=== PATIENT | female | born 1985 | race Caucasian/White ===

== ENCOUNTER → 2017-12-28 12:24 | Outpatient (CLI) | payer OTHER, SELFPAY ==
--- NOTE | 2017-12-28 12:26 | DI.US.S_ITS ---
PROCEDURE: US OB >= 14 WEEKS FETUS INDICATIONS: 20 WEEK ANATOMIC SURVEY OUTSIDE/PRIOR DATING DATA: Last menstrual period (LMP): 08/02/17. LMP-based estimated date of delivery (DARRELL): 05/09/18. First dating scan (date and location): 10/21/17. Estimated date of delivery (DARRELL) from first dating scan: 05/09/18. TECHNIQUE: Real-time scanning was performed of the fetus, with image documentation and biometric measurements. Endovaginal scanning: Vertex COMPARISON: [facility], , OB >= 14 WEEKS FETUS, 12/10/2017, 16:23. FINDINGS: General: A single living intrauterine gestation is present. Presentation: Vertex Placenta: Placental position is anterior, without previa. Amniotic fluid index: 14.5 cm, normal range is 5-24 cm. heart rate: 152 beats per minute. Maternal cervical canal: 3.2 cm long. biometrics: Biparietal diameter: 5.1 cm; 21 weeks 3 days Head circumference: 19.1 cm; 21 weeks 3 days Abdominal circumference: 17.4 cm; 22 weeks 3 days Femur length: 3.8 cm; 22 weeks Estimated gestational age from initial scan: 21 weeks 1 day Composite gestational age from present scan: 21 weeks 6 days Estimated weight and percentile: Is 474 g; 89 percentile Measurement variability for biometric dating: +/- 7 days from 14 weeks to 15 weeks 6 days gestation, +/- 10 days from 16 weeks to 21 weeks 6 days gestation, +/- 2 weeks from 22 weeks to 27 weeks 6 days gestation, +/- 3 weeks for 28 weeks gestation or later. weight reference: 4500 g or EFW >90/95% is considered macrosomia or large for gestational age. EFW <10% is small for gestational age. EFW 5% or less is considered intra-uterine growth restriction. Anatomic survey: Neuro: Ventricles are non-dilated at less than 10 mm. Cisterna magna is normal at 3-11 mm. Cerebellum is normal in size and morphology. Nuchal skin fold: Normal at less than 6 mm between 14-21 weeks gestational age. Face: Nose and lips, facial profile are normal. Spine: No evidence for spina bifida. Heart: 4-chambered heart is present, with normal ventricular outflow tracts. Solitary left ventricular intracardiac focus present. Diaphragm: Diaphragm is intact. Stomach: Left-sided stomach is present. Kidneys: No hydronephrosis. Normal is less than 5 mm in 2nd trimester, less than 7 mm in 3rd trimester. Cord: 3-vessel cord has orthotopic insertion. Bladder: Normal in size. Extremities: All 4 extremities identified. IMPRESSION: Single living IUP we demonstrated and interval growth is upper limits of normal with estimated weight at the 89th percentile. Solitary left ventricular intracardiac focus which is nonspecific but does require correlation with maternal risk factors and quad screen if indicated. Anatomic survey otherwise is normal. Dictated by: Mac Davis [facility] Interpreted: Ralph Campbell MD on 12/28/2017 at 13:54 Approved by: Ralph Campbell M.D. on 12/28/2017 at 17:42
== END ==
PROVIDERS: Visit Provider Specialist
DX: Z34.92 Encounter for supervision of normal pregnancy, unspecified, second trimester (principal); Z3A.21 21 weeks gestation of pregnancy
CPT/HCPCS: 76811

== ENCOUNTER → 2018-02-18 13:40 | Outpatient (CLI) | payer OTHER, SELFPAY ==
[2018-02-18 15:41] LABS: Hematocrit 36.6 % (36-46); Hemoglobin 12.5 g/dL (12.0-16.0)
[2018-02-18 16:12] LABS: GTT (PREG) 1 Hour PP 50gm Dose 92 mg/dL (76-139)
== END ==
PROVIDERS: Visit Provider Specialist
DX: Z34.92 Encounter for supervision of normal pregnancy, unspecified, second trimester (principal)
CPT/HCPCS: 82950; 85014; 85018

== ENCOUNTER → 2018-04-04 11:33 | Outpatient (CLI) | payer OTHER, SELFPAY ==
[2018-04-04 12:24] LABS: Add Manual Diff / Slide Review NO; Basophils Percent Auto 0.5 % (0-2); Eosinophils Percent Auto 0.3 % (2-4); Hematocrit 38.1 % (36-46); Hemoglobin 13.2 g/dL (12.0-16.0); Mean Corpuscular HGB Conc 34.6 % (30-36); Mean Corpuscular Hemoglobin 31.4 PG (26-34); Mean Corpuscular Volume 90.8 fL (80-100); Neutrophils Absolute Auto 9700 /uL (3000-5900); Neutrophils Percent Auto 80.2 % (50-75); Platelet Count 282 X10^3/uL (150-400); Red Cell Distribution Width 14.5 % (11.6-14.8); White Blood Cell Count 12.1 X10^3/uL (4.5-11.0)
[2018-04-04 12:36] LABS: Alanine Aminotransferase 20 IU/L (9-52); Aspartate Aminotransferase 17 IU/L (14-36); Blood Urea Nitrogen 5 mg/dL (7-17); Estimated Glomerular Filt Rate > 60.0 mL/min (>60); Uric Acid 4.2 mg/dL (2.5-6.2)
[2018-04-04 13:45] LABS: Free T4, Direct Thyroxine 0.68 ng/dL (0.78-2.19)
[2018-04-04 13:59] LABS: Thyroid Stimulating Hormone 1.89 uIU/mL (0.47-4.68)
== END ==
PROVIDERS: Visit Provider Specialist
DX: E03.9 Hypothyroidism, unspecified (principal); O16.3 Unspecified maternal hypertension, third trimester
CPT/HCPCS: 36415; 82565; 84439; 84443; 84450; 84460; 84520; 84550; 85025

== ENCOUNTER 2018-04-04 12:07 | Outpatient (CLI) | payer OTHER, SELFPAY ==
--- NOTE | 2018-04-04 14:11 | PM.OBTRLD ---
Visit Information Visit Information Date of evaluation: 04/04/18 Primary OB Provider: Shira Shannon Reason for Evaluation: Yes non-stress test Comments/Additional reasons for admission: Thirty-five week gestation with hypertension in office on routine OB appointment Vital Signs Vital Signs: Blood pressure 132/82 Review of Systems Review of Systems Patient denies headaches, scotomata, epigastric pain All systems reviewed & are unremarkable except as noted in HPI and below Evaluation Evaluation Baseline heart rate: 140 Variability: Moderate (11-25) monitor accelerations: Present monitor decelerations: Absent Contraction Frequency (minutes): 0 Category of Tracing: I Laboratory results: Urine dip in the office was trace protein Diagnosis, Plan/Disposition Final Diagnosis (1) Hypertension affecting in third trimester: Current Visit: Yes Status: Acute (2) 35 weeks gestation of : Current Visit: Yes Status: Acute Plan/Disposition Plan: Patient was discharged to follow-up on 1 week at her routine OB appointment. Signs and symptoms of preeclampsia were reviewed with the patient. OB Disposition: home
== END 2018-04-04 13:04 | disposition home or self-care (01) ==
LOC: OB 04-06 16:26
PROVIDERS: Visit Provider Specialist
DX: O16.3 Unspecified maternal hypertension, third trimester (principal); Z3A.35 35 weeks gestation of pregnancy
CPT/HCPCS: 36415; 59025; 82565; 84439; 84443; 84450; 84460; 84520; 84550; 85025; G0378; G0379

== ENCOUNTER 2018-04-12 21:33 | Observation (INO) | payer OTHER, SELFPAY ==
[2018-04-12] MEDS: NIFEdipine 10 MG CAPSULE PO ×4 (22:10→23:10)
[2018-04-12] MEDS: TERBUTALINE 1 MG/ML VIAL 0.25 MG SUBCUT (23:31)
== END 2018-04-13 | disposition home or self-care (01) ==
LOC: LABOR 21:37
PROVIDERS: Admitting Provider Obstetrics & Gynecology; Visit Provider Obstetrics & Gynecology
DX: O16.3 Unspecified maternal hypertension, third trimester (principal); Z3A.36 36 weeks gestation of pregnancy
CPT/HCPCS: 59025; 59050; 96372; G0378; G0379

== ENCOUNTER 2018-04-13 10:01 | Inpatient (IN) | payer OTHER, SELFPAY ==
[2018-04-13 11:52] LABS: Strep Grp B PCR NEG for Grp B Strep
[2018-04-13 12:00] LABS: Add Manual Diff / Slide Review NO; Basophils Percent Auto 0.4 % (0-2); Eosinophils Percent Auto 0.1 % (2-4); Hematocrit 38.6 % (36-46); Hemoglobin 13.2 g/dL (12.0-16.0); Lymphocytes Percent Auto 7.5 % (25-40); Mean Corpuscular HGB Conc 34.1 % (30-36); Mean Corpuscular Hemoglobin 31.1 PG (26-34); Mean Corpuscular Volume 91.1 fL (80-100); Monocytes Percent Auto 4.6 % (3-14); Neutrophils Absolute Auto 16000 /uL (3000-5900); Neutrophils Percent Auto 87.4 % (50-75); Platelet Count 301 X10^3/uL (150-400); Red Blood Cell Count 4.24 X10^6/uL (4.0-5.2); Red Cell Distribution Width 14.7 % (11.6-14.8); White Blood Cell Count 18.3 X10^3/uL (4.5-11.0)
[2018-04-13 13:17] VITALS: BP 129/76
--- NOTE | 2018-04-13 13:26 | P.HPOB_ITS ---
OB HPI Date/Time Date of admission: 04/13/18 Date Patient Seen: 04/13/18 Time Patient Seen: 13:00 History of Present Condition Chief complaint: OBS : 1 Para: 0 Estimated Date of Delivery: 05/09/18 Estimated Gestational Age (weeks): 36 Narrative: Cinyd Campbell is a 32 year old female admitted in active labor History of Present care: good care, initiated at week # (11), number of visits (8) and pounds weight gain (74) Dating criteria: LMP confirmed by 1st trimester US Ultrasounds: abnormal US findings (Hyperechoic intracardiac focus, resolved) Obstetrical complications: none Medical complications: none Preadmission Labs Blood type: A (+) positive -: Antibody screen: negative, GBS status: negative, HBsAG: negative, HIV: negative, HSV 1: negative, HSV 2: negative and RPR/VDLR: negative -: Chlamydia screen: not detected and Gonorrhea screen: not detected -: Rubella: immune and Varicella: immune HCAB: negative PAP: Normal Cell-free DNA: Normal male 1 hr GTT: 92 Evaluation Evaluation Baseline heart rate: 150 Variability: Moderate (11-25) monitor accelerations: Present monitor decelerations: Absent Contraction Frequency (minutes): 3 Uterine Contraction Intensity: Moderate Category of Tracing: I Cervical dilation (cm): 6 Cervical effacement (%): 100 station: +1 Laboratory results: Laboratory Tests 04/13/18 04/13/18 04/13/18 11:50 11:50 Unknown WBC 18.3 H RBC 4.24 Hgb 13.2 Hct 38.6 MCV 91.1 MCH 31.1 MCHC 34.1 RDW 14.7 Plt Count 301 Neut % (Auto) 87.4 H Lymph % (Auto) 7.5 L [place] % (Auto) 4.6 Eos % (Auto) 0.1 L Baso % (Auto) 0.4 Neut # (Auto) 70281 H Group B Strep (PCR) Neg for grp b strep Blood Type A Positive Antibody Screen Negative PFSH Medical History Hypothyroidism (acquired) (Chronic) Social History Smoking Status: Never smoker Meds Home Medications Medication Instructions Recorded Confirmed Type omeprazole 40 mg capsule,delayed 40 mg PO DAILY #30 cap 03/04/18 04/13/18 Rx release breast pump #1 each 03/18/18 03/18/18 Rx levothyroxine 25 mcg capsule 75 mcg PO DAILY #90 cap 04/05/18 04/13/18 Rx Allergies Allergy/AdvReac Type Severity Reaction Status Date / Time Penicillins AdvReac Intermediate Verified 04/12/18 22:40 Review of Systems Review of Systems Regular painful contractions and vaginal bleeding. No headaches, scotomata, or epigastric pain. No leakage of fluid All systems reviewed & are unremarkable except as noted in HPI and below Exam Vital Signs (past 8 hours): Blood pressure 129/76, pulse of 85, temperature 97.5?- 04/13/18 13:17 Blood Pressure 129/76 Narrative Exam Narrative: Patient's HEENT exam within normal limits. No palpable thyromegaly. Lungs are clear to auscultation and percussion. Heart is regular rate and rhythm, no S3-S4 or murmurs. Uterus is gravid and nontender. Extremities with +1 edema, nontender. DTRs are normal. Objective Labs Result Diagrams: 04/13/18 11:50 Labs: Laboratory Results - last 24 hr 04/13/18 04/13/18 04/13/18 11:50 11:50 Unknown WBC 18.3 H RBC 4.24 Hgb 13.2 Hct 38.6 MCV 91.1 MCH 31.1 MCHC 34.1 RDW 14.7 Plt Count 301 Neut % (Auto) 87.4 H Lymph % (Auto) 7.5 L [place] % (Auto) 4.6 Eos % (Auto) 0.1 L Baso % (Auto) 0.4 Neut # (Auto) [id number] H Group B Strep (PCR) Neg for grp b strep Blood Type A Positive Antibody Screen Negative Assessment and Plan (1) Acquired hypothyroidism: Onset Date: 10/21/17 Current visit: No Status: None (2) 36 weeks gestation of : Current visit: Yes Status: Acute (3) Third trimester : Current visit: Yes Status: Acute Plan: Plan: Patient admitted in active labor plan is to for epidural if she requests and anticipate vaginal delivery.
[2018-04-13] MEDS: LACTATED RINGERS 1,000 ML 125 ML IV (14:16)
[2018-04-13] MEDS: LACTATED RINGERS 1,000 ML 100 ML IV (16:01)
--- NOTE | 2018-04-13 18:56 | P.PCNOB_ITS ---
Delivery date: 04/13/18 Intrapartal events: None Induction method: none Delivery monitor: external FHT and external uterine Route of delivery: Laceration description: Perineal - 2nd Degree Delivery repair: chromic Estimated blood loss (mL): 200 Anesthesia type: Epidural Narrative: Patient arrived on Labor and delivery in active labor. heart tones remained category 1 to category 2 throughout labor. She received an epidural catheter for pain control. She delivered spontaneously, over an intact perineum and the viable male was placed on the maternal abdomen. After cord stopped pulsating the cord was clamped cut and cord bloods obtained. The placenta delivered spontaneously, intact, with 3 vessels. There were no cervical or vaginal tears. A second-degree midline perineal tear was repaired with in 2 layers with 3 0 chromic suture. Baby weighed 6 lb 8 oz. [place] Baby 1: Infant gender: Male Presentation: vertex position: Right Occiput Anterior Placenta delivery description: Spontaneous cord vessel description: 3 Vessels score (1 min): 8 score (5 min): 9 Plan for aftercare: Routine care
[2018-04-14] MEDS: DERMOPLAST SPRAY 20% 60 ML 1 SPRAY TOP (01:54)
[2018-04-14] MEDS: IBUPROFEN 600 MG TABLET PO ×3 (06:00→18:45)
[2018-04-14] MEDS: LEVOTHYROXINE 75 MCG TABLET PO (06:05)
--- NOTE | 2018-04-14 07:33 | PM.PN.1 ---
Subjective Date Patient Seen: 04/14/18 Time Patient Seen: 07:34 Interval history: Patient is 12 hr . She has some burning with urination. She denies any headaches, scotomata, epigastric pain. She denies nausea. She is urinating and ambulatory. She has mild lochia. Exam Vital Signs (past 8 hours): Blood pressure 119/59, pulse of 98, temperature 36.1? Narrative Exam Narrative: Patient's abdomen is soft, nontender. Uterus is firm, at U, nontender. Mild lochia with perineum intact. Extremities with trace edema, nontender. Objective Labs Result Diagrams: 04/13/18 11:50 Labs: Laboratory Results - last 24 hr 04/13/18 04/13/18 04/13/18 11:50 11:50 Unknown WBC 18.3 H RBC 4.24 Hgb 13.2 Hct 38.6 MCV 91.1 MCH 31.1 MCHC 34.1 RDW 14.7 Plt Count 301 Neut % (Auto) 87.4 H Lymph % (Auto) 7.5 L [place] % (Auto) 4.6 Eos % (Auto) 0.1 L Baso % (Auto) 0.4 Neut # (Auto) [id number] H Group B Strep (PCR) Neg for grp b strep Blood Type A Positive Antibody Screen Negative Assessment & Plan (1) Vaginal delivery: Current visit: Yes Status: Acute Plan: Assessment/Plan Narrative: Routine care.
--- NOTE | 2018-04-14 07:36 | P.PN_ITS ---
Subjective Date Patient Seen: 04/14/18 Time Patient Seen: 07:34 Interval history: Patient is 12 hr . She has some burning with urination. She denies any headaches, scotomata, epigastric pain. She denies nausea. She is urinating and ambulatory. She has mild lochia. Exam Vital Signs (past 8 hours): Blood pressure 119/59, pulse of 98, temperature 36.1? Narrative Exam Narrative: Patient's abdomen is soft, nontender. Uterus is firm, at U, nontender. Mild lochia with perineum intact. Extremities with trace edema, nontender. Objective Labs Result Diagrams: 04/13/18 11:50 Labs: Laboratory Results - last 24 hr 04/13/18 04/13/18 04/13/18 11:50 11:50 Unknown WBC 18.3 H RBC 4.24 Hgb 13.2 Hct 38.6 MCV 91.1 MCH 31.1 MCHC 34.1 RDW 14.7 Plt Count 301 Neut % (Auto) 87.4 H Lymph % (Auto) 7.5 L [place] % (Auto) 4.6 Eos % (Auto) 0.1 L Baso % (Auto) 0.4 Neut # (Auto) 62302 H Group B Strep (PCR) Neg for grp b strep Blood Type A Positive Antibody Screen Negative Assessment & Plan (1) Vaginal delivery: Current visit: Yes Status: Acute Plan: Assessment/Plan Narrative: Routine care.
[2018-04-14] MEDS: DOCUSATE 250 MG CAPSULE PO (12:54)
[2018-04-15] MEDS: IBUPROFEN 600 MG TABLET PO ×3 (01:00→14:37)
[2018-04-15] MEDS: LEVOTHYROXINE 75 MCG TABLET PO (07:20)
--- NOTE | 2018-04-15 16:58 | P.DS_ITS ---
Discharge Providers Date of admission: 04/13/18 10:01 Consults: 04/14/18 05:59 Consult to Press Assistant Routine Comment: Discharge provider: Shira Shannon MD Discharge Date: 04/15/18 Summary Date Patient Seen: 04/15/18 Time Patient Seen: 16:55 Hospital Course: Patient arrived on Labor and delivery in active labor. She received an epidural catheter for pain control. She delivered spontaneously a viable male infant weighing 6 lb 8 oz. She had a second-degree perineal tear repair. She did well with some issues with breast-feeding. She had no signs or symptoms of preeclampsia. She was urinating well and ambulatory. No signs of depression. Peripartum Data Delivery Method: Natural Vaginal Laceration description: Perineal - 2nd Degree Procedures: Epidural catheter, spontaneous vaginal delivery, repair of second- degree perineal tear complications: none Discharge Diagnosis (1) Vaginal delivery: Status: Acute Status at Discharge Functional status at discharge: independent ambulation Overall status at discharge: patient is progressing back to baseline Time Spent with Patient Total time spent providing and/or coordinating discharge services: Less than 30 minutes Objective Labs Result Diagrams: 04/13/18 11:50 Discharge Plan Discharge Plan Patient Disposition: Home Discharge Med Rec/Prescriptions Prescriptions: New ibuprofen 600 mg Tablet 600 mg PO Q6HR PRN (Reason: Pain, Mild (1-3)) Qty: 30 RF: 0 Continue levothyroxine 25 mcg capsule 75 mcg PO DAILY Qty: 90 RF: 2 No Action breast pump device .Route .MEDSUPPLY Qty: 1 RF: 0 Provider Discharge Instructions Diet: Regular Activity: Nothing in vagina for 4 weeks Skin/Wound/Dressing Care Report to your healthcare provider any signs of infection, such as:: chills, fever, increased pain and unusual drainage Discharge Data Attending Provider: Shira Shannon Admit Date/Time: 04/13/18 10:01
[2018-04-15 17:32] VITALS: BP 121/83; PULSE 91; RESP 16; TEMP 36.3
[2018-04-15 18:16] VITALS: BP 121/83; PULSE 91; RESP 16; TEMP 36.3
== END 2018-04-15 18:30 | disposition home or self-care (01) | DRG 775 ==
PROVIDERS: Admitting Provider Specialist; Visit Provider Specialist
DX: O60.14X0 Preterm labor third trimester with preterm delivery third trimester, not applicable or unspecified (principal); Z3A.36 36 weeks gestation of pregnancy; Z37.0 Single live birth; O70.1 Second degree perineal laceration during delivery
CPT/HCPCS: 01967; 36415; 59050; 59400; 85025; 86850; 86900; 86901; 87653; G0379

== ENCOUNTER → 2018-10-19 12:22 | Outpatient (CLI) | payer OTHER, SELFPAY ==
[2018-10-19 13:48] LABS: Free T4, Direct Thyroxine 1.33 ng/dL (0.78-2.19)
[2018-10-19 14:02] LABS: Thyroid Stimulating Hormone 1.86 uIU/mL (0.47-4.68)
== END ==
PROVIDERS: Visit Provider Specialist
DX: E03.9 Hypothyroidism, unspecified (principal)
CPT/HCPCS: 36415; 84439; 84443